=== PATIENT | male | born 1950 | race Caucasian/White ===

== ENCOUNTER 2019-04-09 14:12 | Outpatient (CLI) | payer OTHER, SELFPAY ==
[2019-04-09 15:57] LABS: Vitamin D 25 Hydroxy 26.5 ng/mL
== END 2019-04-09 14:13 | disposition home or self-care (01) ==
PROVIDERS: Visit Provider Orthopaedic Surgery
DX: E55.9 Vitamin D deficiency, unspecified (principal)
CPT/HCPCS: 36415; 82306

== ENCOUNTER 2019-05-21 11:39 | Outpatient (CLI) | payer OTHER, SELFPAY ==
[2019-05-21 12:48] LABS: Vitamin D 25 Hydroxy 41.8 ng/mL
== END 2019-05-21 11:40 | disposition home or self-care (01) ==
LOC: ANHLAB 11:46
PROVIDERS: PCP Family Medicine; Visit Provider Orthopaedic Surgery
DX: E55.9 Vitamin D deficiency, unspecified (principal)
CPT/HCPCS: 36415; 82306

== ENCOUNTER 2024-08-26 08:51 | Emergency (ER) | payer OTHER, SELFPAY ==
--- NOTE | 2024-08-26 08:52 | ED_ITS ---
HPI - Skin/Abscess/Foreign Bdy General Chief complaint: Skin/Abscess/Foreign Body Stated complaint: Rash Time Seen by Provider: 08/26/24 09:23 Source: patient and RN notes reviewed Mode of arrival: ambulatory Limitations: no limitations History of Present Illness HPI narrative: 74-year-old male presents to the [facility] with a rash to the posterior left side of head, posterior neck into the upper portion of the shoulder. States that started sending her Friday, 3-4 days ago. Describes it as burning. Had been applying Neosporin and hydrocortisone cream Onset (ago): day(s) (3-4) Related Data Home Medications ?Medication ?Instructions ?Recorded ?Confirmed ?Last Taken ?Type simvastatin 5 mg tablet mg 08/26/24 Unknown History Allergies Allergy/AdvReac Type Severity Reaction Status Date / Time No Known Drug Allergies Allergy none Verified 08/26/24 09:31 Review of Systems 2 Review of Systems: All systems reviewed & are unremarkable except as noted in HPI and below Constitutional: Constitutional: Reports no additional constitutional complaints ENT: Reports system reviewed and no additional complaints, except as documented Integumentary/Breasts: Skin/Breast: Reports as per HPI, Reports rash and Reports skin pain Neurologic: Reports system reviewed and no additional complaints, except as documented PMFSH Comments At the time of my signature, I reviewed and agree with the nursing past medical, surgical, social, and family history. There is no relevant family history pertinent to the patient complaint. Exam 2 Const: General: cooperative, healthy appearing, comfortable, no acute distress, well developed, alert and well nourished Nutritional Appearance: w ell nourished Orientation/consciousness: patient oriented x3 Limitations: no limitations HENMT: Head: normal to inspection Ears: hearing grossly normal bilaterally and external ears normal Face/Nose/Sinus: Normal external nose present F torres and sinus: normal facial exam and face symmetric Mouth: Yes Normal oral and palatal mucosa present, Yes lip normal, Yes tongue normal and Yes moist mucous membranes Eyes: General: appearance normal, both eyes and all related structures A lignment and Position: alignment normal Neck: Neck: normal visual inspection, full ROM, no lymphadenopathy and no meningeal signs Neck images: 1. Multiple red raised patches, multiple vesicular lesions, does not cross midline. Multiple crusted areas as well Chest: Chest palpation & inspection: normal inspection of the chest Resp: Effort & Inspection: normal respiratory effort and able to speak in complete sentences Auscultation: clear to auscultation bilaterally, no crackles, no rales, no rhonchi and no wheezes Cardio: Rate: regular rate Skin: General skin exam: normal color and no rashes or lesions noted R ashes: rashes noted left Full body images: 1. Red patches with vesicular lesions, some are crusted. Neuro: General: patient oriented x3, gait normal, moves all extremities and no meningeal signs Cognition (Neuro): normal cognition Speech: normal speech Gait exam (Neuro): Normal gait present Extrem: General: normal to inspection, full ROM, capillary refill normal and normal gait Psych: Appearance: grossly normal and well kempt Mental Status: mental status grossly normal Speech and movement: Normal speech and movement present and Clear speech present Affect: normal affect Attitude: cooperative Course Course Level of Care: Express Care Visit Vital Signs Vital signs: Vital Signs Temperature 100.0 F H 08/26/24 09:04 Pulse Rate 84 08/26/24 09:04 Respiratory Rate 20 08/26/24 09:04 Blood Pressure 138/69 08/26/24 09:04 Pulse Oximetry 100 08/26/24 09:04 Oxygen Delivery Room Air 08/26/24 09:04 Temperature 100.0 F H 08/26/24 09:04 Pulse Rate 84 08/26/24 09:04 Respiratory Rate 20 08/26/24 09:04 Blood Pressure 138/69 08/26/24 09:04 Pulse Oximetry 100 08/26/24 09:04 Oxygen Delivery Room Air 08/26/24 09:04 Reviewed MDM - Skin/Abscess/Foreign Bdy MDM Narrative Medical decision making narrative: Patient sitting in exam room. Patient is nontoxic. Patient presents with 3-4 day history of vesicular lesions to left side of neck and scalp. Patient describes it is burning. Patient with no significant medical history Exam most consistent with shingles, no additional testing needed Patient appropriate for outpatient treatment, discussed using cos I clear even though he is on the outside of treatment window. Discussed shingles can last for weeks if not months. Stressed the importance of following up with primary care provider which patient verbalized understanding. Discussed signs and symptoms proceed to the emergency room which she also verbalized understanding Discharge instructions reviewed with patient, as well as provided in writing per nursing staff. The instructions also include specific and strict return/GO TO THE ER as well as f/u information. All questions have been answered, and the patient deny any further questions with discharge and discharge plan. Some parts of this dictation were generated by voice recognition software and may contain typographical and/or grammatical inaccuracies. Differential Diagnosis Differential diagnosis: Likely abscess of skin or subcutaneous tissue, viral exanthem, herpes zoster, cellulitis, impetigo, contact dermatitis and other (Shingles) Critical Care Time Critical Care Time Critical Care Time: No Discharge Plan Discharge Clinical Impression: Shingles Qualifiers: Herpes zoster complications: without complications Qualified Code(s): B02.9 - Zoster without complications Patient Disposition: Home Condition: Stable Instructions: Shingles (ED) Additional Instructions: Take Tylenol or Motrin to help ease pain. Apply cool compresses. Stay rested and hydrated. Be sure to keep the rash clean and dry. Stay way from people, very older very young. Follow-up with your primary care provider within 2 weeks Patient Language: Uzbek Prescriptions: New valacyclovir 1 gram tablet 1,000 mg PO TID 7 Days Qty: 21 0RF No Action simvastatin 5 mg tablet Follow-up/Referrals: Nasrin,Tenzin Barbosa MD [Non-Staff] - 1 Week (express care follow up shingles rash) Time of Disposition: 09:33
[2024-08-26 09:04] VITALS: BP 138/69; PULSE 84; RESP 20; TEMP 37.8; O2SAT 100
== END 2024-08-26 09:41 | disposition home or self-care (01) ==
PROVIDERS: Emergency Provider Nurse Practitioner; PCP Internal Medicine
DX: B02.9 Zoster without complications (principal); E78.00 Pure hypercholesterolemia, unspecified
CPT/HCPCS: 99213; G0463